=== PATIENT | female | born 1965 | race Caucasian/White ===

== ENCOUNTER 2025-04-19 19:01 | Emergency (ER) | payer OTHER ==
[~2025-04-19] VITALS: Ht 167.6 cm; Wt 86.2 kg
== END 2025-04-19 21:38 | disposition left against medical advice (07) ==
LOC: ED 19:01
DX: R10.9 Unspecified abdominal pain (principal); R35.0 Frequency of micturition; R21 Rash and other nonspecific skin eruption; Z53.21 Procedure and treatment not carried out due to patient leaving prior to being seen by health care provider

== ENCOUNTER 2025-05-13 21:21 | Emergency (ER) | payer OTHER ==
[2025-05-13] MEDS ORDERED: diphenhydrAMINE hydrochloride 50 MG/ML VIAL IV ONE (23:15)
[2025-05-13] MEDS ORDERED: FAMOTIDINE 50 ML IV ONE ×2 (23:15→23:25)
[2025-05-14] MEDS ORDERED: BENADRYL ALLERG50 MG PO (01:32)
[2025-05-14] MEDS ORDERED: PREDNISONE10 M1 PO (01:32)
[2025-05-14] MEDS ORDERED: HEARTBURN RELIE20 MG PO (01:32)
[2025-05-14] MEDS ORDERED: FAMOTIDINE 20 MG in SYRINGE INFUSION 8 ML IV SCH (10:00)
== END 2025-05-14 01:26 | disposition home or self-care (01) ==
LOC: ED 21:21
DX: L23.7 Allergic contact dermatitis due to plants, except food (principal)